=== PATIENT | male | born 1990 | race Caucasian/White ===

== ENCOUNTER 2017-06-09 10:54 | Day surgery (SDC) | payer BC, MEDICAID ==
[~2017-06-09] VITALS: Ht 167.6 cm; Wt 50.1 kg
[2017-06-09] MEDS ORDERED: UROCIT-K 5540 MG/TAB PO (11:20)
[2017-06-09] MEDS ORDERED: TEGRETOL-XR400 MG PO (11:21)
[2017-06-09] MEDS ORDERED: PRILOSEC 20MG20 MG (11:21)
[2017-06-09 13:08] LABS: BASO % 0.3 % (0.0-2.0); EOS % 0.5 % (0-4.0); GRAN # 5.7 (1.4-6.5); GRAN % 76.5 % (42.2-75.2); HEMATOCRIT 44.5 % (42.0-52.0); HEMOGLOBIN 15.2 g/dl (13.5-18.0); LYMPH # 1.1 (1.2-3.4); LYMPH % 15.1 % (20.0-51.0); MEAN CELL VOLUME 90 fl (80.0-100.0); MEAN CORPUSCULAR HEMOGLOBIN 31 pg (27.0-31.0); MEAN CORPUSCULAR HGB CONC 34 g/dl (33.0-37.0); MEAN PLATELET VOLUME 9.3 fl (7.4-10.4); MONO # 0.6 (0.1-0.6); MONO % 7.5 % (1.7-9.3); PLATELET COUNT 208 K/mm3 (130-400); RED BLOOD COUNT 4.96 M/mm3 (4.20-5.60); REDCELL DISTRIBUTION WIDTH-CV 11.9 % (11.5-14.5); WHITE BLOOD COUNT 7.5 K/mm3 (4.8-10.8)
[2017-06-09 13:27] LABS: ADJUSTED CALCIUM 8.7 mg/dL (8.4-10.2); ALBUMIN 4.6 gm/dL (3.5-5.0); BILIRUBIN,TOTAL 0.4 mg/dL (0.0-1.0); CALCIUM 9.2 mg/dL (8.4-10.2); CREATININE, serum 0.63 mg/dL (0.66-1.25); POTASSIUM 3.9 mmol/L (3.4-5.0); TOTAL PROTEIN 7.7 gm/dL (6.4-8.2)
[2017-06-09 14:35] VITALS: BP 123/87; PULSE 91
[2017-06-09 15:26] LABS: CARBAMAZEPINE (TEGRETOL) 7.8 ug/mL (4.0-12.0)
[2017-06-09 16:36] VITALS: BP 125/85; PULSE 83; TEMP 97.5
== END 2017-06-09 15:00 | disposition home or self-care (01) ==
LOC: SDCO 10:54
PROVIDERS: Family Medicine
DX: K02.9 Dental caries, unspecified (principal); K05.10 Chronic gingivitis, plaque induced; K21.9 Gastro-esophageal reflux disease without esophagitis; G40.909 Epilepsy, unspecified, not intractable, without status epilepticus; R62.50 Unspecified lack of expected normal physiological development in childhood
CPT/HCPCS: J0461; J2405; J2704; J3010